=== PATIENT | female | born 1995 | race Caucasian/White ===

== ENCOUNTER 2020-11-08 08:42 | Inpatient (IN) ==
[2020-11-08] MEDS ORDERED: Metoclopramide 10 MG/2 ML VIAL IVP PRN (09:38)
[2020-11-08] MEDS ORDERED: Naloxone 0.4 MG/ML INJ IVP PRN (09:38)
[2020-11-08] MEDS ORDERED: miSOPROStoL 25 MCG TABLET PO PRN (09:38)
[2020-11-08] MEDS ORDERED: Famotidine 20 MG/2 ML VIAL IVP PRN (09:38)
[2020-11-08] MEDS ORDERED: Ondansetron 4 MG/2 ML VIAL IVP PRN ×3 (09:38→21:37)
[2020-11-08] MEDS ORDERED: Ringers Solution, Lactated 1,000 ML IVC SCH (09:45)
[2020-11-08 10:27] LABS: Basophils % 0.2 %; Eosinophils # 0.1 K/mcL (0.0-0.6); Eosinophils % 0.7 %; Hematocrit 34.1 % (35.3-44.9); Hemoglobin 11.7 g/dL (11.5-15.4); Immature Granulocytes % 0.4 % (0-4); Lymphocytes # 1.3 K/mcL (0.6-4.6); Lymphocytes % 12.5 %; Mean Corpuscular HGB Conc 34.3 g/dL (31.6-35.5); Mean Corpuscular Hemoglobin 31.1 pg (28.0-33.3); Mean Corpuscular Volume 90.7 fL (83.0-100.0); Mean Platelet Volume 11.5 fL (9.4-12.4); Monocytes # 0.9 K/mcL (0.0-1.3); Monocytes % 8.1 %; Neutrophils # 8.4 K/mcL (1.6-8.9); Platelet Count 193 K/mcL (140-400); Red Blood Count 3.76 M/mcL (3.82-4.97); Red Cell Distribution Width 12.8 % (11.5-14.5); Segmented Neutrophils % 78.1 %; White Blood Count 10.8 K/mcL (4.3-11.1)
[2020-11-08 11:16] LABS: Amphetamine Screen,Urine Negative ng/mL (Cutoff=1000); Barbiturate Screen,Urine Negative ng/mL (Cutoff=200); Benzodiazepines Screen,Urine Negative ng/mL (Cutoff=200); Cannabinoid Screen,Urine Negative ng/mL (Cutoff = 50); Cocaine Screen,Urine Negative ng/mL (Cutoff= 300); Opiate Screen,Urine Negative ng/mL (Cutoff=300); Phencyclidine Screen,Urine Negative ng/mL (Cutoff=25)
[2020-11-08] MEDS ORDERED: Oxytocin 20 units/ LR 1000 mL 20 UNIT/1,000 ML BAG IVC ONE ×2 (13:58→19:36)
[2020-11-08] MEDS ORDERED: *HR* FentaNYL (PF) 100 MCG/2 ML VIAL EP ONE (13:59)
[2020-11-08] MEDS ORDERED: EPHEDrine 50 MG/ML VIAL IVP PRN (13:59)
[2020-11-08] MEDS ORDERED: Ropivacaine/PF 0.2% 20 ML VIAL EP ONE (13:59)
[2020-11-08] MEDS ORDERED: Epidural Premix (fent/bupiv) 110 ML EP SCH (14:00)
[2020-11-08] MEDS ORDERED: Epidural Premix (fent/bupiv) 110 ML EP ONE (14:06)
[2020-11-08] MEDS ORDERED: Methylergonovine 0.2 MG/ML AMPUL IM ONE (18:54)
[2020-11-08] MEDS ORDERED: Acetaminophen 325 MG TABLET PO PRN (21:37)
[2020-11-08] MEDS ORDERED: Oxytocin 20 units/ LR 1000 mL 20 UNIT/1,000 ML BAG IVC SCH (21:37)
[2020-11-08] MEDS ORDERED: Measles/Mumps/Rubella Vacc 0.5 ML VIAL SQ PRN (21:37)
[2020-11-08] MEDS ORDERED: Ibuprofen 600 MG TABLET PO PRN (21:37)
[2020-11-08] MEDS ORDERED: miSOPROStoL 100 MCG TABLET PO STA (23:02)
[2020-11-09 04:14] LABS: Basophils % 0.1 %; Eosinophils % 0.2 %; Hematocrit 23.6 % (35.3-44.9); Immature Granulocytes % 0.5 % (0-4); Lymphocytes # 1.9 K/mcL (0.6-4.6); Lymphocytes % 10.7 %; Mean Corpuscular HGB Conc 35.6 g/dL (31.6-35.5); Mean Corpuscular Hemoglobin 32.8 pg (28.0-33.3); Mean Corpuscular Volume 92.2 fL (83.0-100.0); Mean Platelet Volume 11.2 fL (9.4-12.4); Monocytes # 0.8 K/mcL (0.0-1.3); Monocytes % 4.7 %; Platelet Count 152 K/mcL (140-400); Red Blood Count 2.56 M/mcL (3.82-4.97); Segmented Neutrophils % 83.8 %
[2020-11-09 04:15] LABS: Hemoglobin 8.4 g/dL (11.5-15.4); Neutrophils # 14.8 K/mcL (1.6-8.9); White Blood Count 17.7 K/mcL (4.3-11.1)
[2020-11-09] MEDS ORDERED: NON-FORMULARY MEDICATION 1 EACH EACH (Prenatal Vitamin Tablet 1 TAB) PO SCH (09:00)
[2020-11-09] MEDS ORDERED: Prenatal Vit/FA 1 EACH TABLET PO SCH (09:00)
[2020-11-09 15:40] VITALS: BP 118/77
== END 2020-11-09 18:55 | disposition home or self-care (01) | DRG 560 ==
LOC: 1NENULAB → OBSVTOIN 08:42 → 1NENULAB 12:44 → 1NENUOBS 21:45
PROVIDERS: ADMIT Obstetrics & Gynecology; ATTEND Obstetrics & Gynecology